=== PATIENT | female | born 1995 | race African-American/Black ===

== ENCOUNTER 2021-07-29 18:36 | Emergency (ER) | payer OTHER, MEDICAID ==
[~2021-07-29] VITALS: Ht 165.1 cm; Wt 117.9 kg
[2021-07-29] MEDS ORDERED: IBUPROFEN 800800 MG PO (21:57)
[2021-07-29] MEDS ORDERED: AMOXICILLIN875 MG PO (21:57)
[2021-07-29 22:05] VITALS: BP 146/101
== END 2021-07-29 22:05 | disposition home or self-care (01) ==
LOC: M.ERS 18:36
DX: G43.909 Migraine, unspecified, not intractable, without status migrainosus (principal); H66.92 Otitis media, unspecified, left ear; Z98.890 Other specified postprocedural states